=== PATIENT | male | born 1935 | race Caucasian/White ===

== ENCOUNTER → 2018-08-16 | Outpatient (CLI) | payer MEDICARE ==
--- NOTE | 2018-08-16 10:36 | CT ---
EXAMINATION TYPE: CT abdomen pelvis wo con DATE OF EXAM: 08/16/2018 HISTORY: Abdomen pain per order. Epigastric pain and nausea per patient. CT DLP: 870 mGycm. Automated Exposure Control for Dose Reduction was Utilized. TECHNIQUE: CT scan of the abdomen and pelvis is performed without oral or IV contrast. COMPARISON: Esophagram from 2015. FINDINGS: Within the limitations of a non-contrast study, the following observations are made. LUNG BASES: There is right coronary artery stent and/or calcification, correlate clinically. LIVER/GB: Cholecystectomy clips are seen. There is 1.5 cm simple appearing cyst right hepatic lobe ax ial image 23. PANCREAS: Moderate generalized fat replaced atrophy of pancreas is seen. SPLEEN: There is 8 mm splenule inferior splenic hilum axial image 27. ADRENALS: Low dense thickening to left adrenal gland favors benign hyperplasia. KIDNEYS: Cortical thinning in both kidneys with several rounded low dense lesions favoring simple poonam earing cysts but there is more hyperdense 3.1 cm partially exophytic lesion mid pole level posteriorl y axial image 37, Hounsfield units average 15, I suspect proteinaceous cyst. Consider ultrasound foll ow-up. There is mild perinephric fat stranding bilaterally, nonspecific finding. There is slightly mo re prominent fluid or horizontal fat stranding coronal image 76 along the posterior margin mid pole l evel left kidney which could reflect old scar or hematoma given linear distribution with subtle areas of hyperdensity noted. BOWEL: Surgical clips just below diaphragm likely from Vinicius fundoplication surgery are present. The re is recurrent small hiatal hernia felt present. Evaluation bowel slightly suboptimal secondary to l ack of enteric contrast. No suspicious small or large bowel dilatation is present. There is 3.9 cm di verticulum along medial aspect second portion of duodenum coronal image 44. Normal-appearing appendix is seen from base of cecum extending inferiorly in the right lower quadrant. Cecum is slightly wande ring into the right upper to mid abdomen. Some diverticula in the sigmoid colon are present. No CT ev idence for acute diverticulitis. GENITAL ORGANS: Prostate gland is slightly enlarged in size consistent with BPH. Left-sided pelvic ph lebolith. LYMPH NODES: No greater than 1cm abdominal or pelvic lymph nodes are appreciated. OSSEOUS STRUCTURES: Spine is straightened with moderate to severe multilevel anterior and lateral spu rring. Posterior interpedicular rods and screws transfix L3-L5 levels. There is moderate to severe di sc space narrowing and spurring at the lumbosacral junction. There is sclerosis and narrowing of bila teral sacroiliac joints. There is mild to moderate narrowing and spurring in both hip joints. OTHER: Moderate to severe calcified plaque of aorta extends into branch vessels. IMPRESSION: Recurrent small hiatal hernia despite Vinicius fundoplication surgery may be accounting for patient's symptoms. Possible nonsimple cyst right kidney, consider ultrasound follow-up.
== END | disposition home or self-care (01) ==
LOC: RADCTMAIN 07:52
PROVIDERS: ATTEND Family Medicine
DX: K44.9 Diaphragmatic hernia without obstruction or gangrene (principal)
CPT/HCPCS: 74176

== ENCOUNTER → 2018-09-26 | Day surgery (SDC) | payer MEDICARE ==
[2018-09-20 16:20] VITALS: BMI 25.0
[~2018-09-26] MED LIST: LACTATED RINGERS 1,000 ML IV SCH; LIDOCAINE 1% 20 ML VIAL (10MG/ML) FOR IV START INTRADERMA PRN; PROPOFOL 10 MG/ML 20 ML VIAL IV ONE
[2018-09-26 08:35] LABS: Glucose,Whole Blood 180 mg/dL (75-99)
[2018-09-26 08:38] VITALS: TEMP 97.6
[2018-09-26 09:24] VITALS: RESP 16
--- NOTE | 2018-09-26 09:24 | P.PCN ---
Date of Procedure: 09/26/18 Description of Procedure: BRIEF HISTORY: Patient is a 83-year-old, pleasant, male patient who was seen in the office for complaints of epigastric pain and pain with swallowing. He reports sensation of pain in the epigastric region after eating. He has a hiatal hernia is status post Annie fundoplication. He has difficult time breathing and dizzy. He was recently seen by pulmonology and was told that his lung function was adequate, spirometry was normal with no desaturations. He takes omeprazole which she states is not helpful.. PROCEDURE PERFORMED: Esophagogastroduodenoscopy with biopsy. PREOPERATIVE DIAGNOSIS: Gastric abdominal pain, esophageal dysphagia. ESTIMATED BLOOD LOSS: Minimal. IV sedation per anesthesia. PROCEDURE: After informed consent was obtained, the patient was brought into the endoscopy unit. IV sedation was administered by Anesthesia under continuous monitoring. Initially the Olympus GIF-190 video endoscope was inserted into the mouth. Esophagus intubated without any difficulty. It was gradually advanced into the stomach and duodenum and carefully examined. The bulb and the second part of the duodenum appeared normal were significant for mild scattered erythema suggestive of mild duodenitis with biopsies taken. The scope at this time was withdrawn to the stomach, adequately insufflated with air, and upon careful examination, mucosa of the antrum, body, cardia and the fundus were significant for nodularity, erythema and superficial erosions in the antrum and body suggestive of moderate gastritis with biopsies taken. The scope was then withdrawn into the esophagus. 3 cm hiatal hernia. The GE junction was located at 38 cm from the incisors. The esophagus appeared normal, with mid esophageal biopsies to rule out EOE. There were no erosions or ulcerations seen and the patient tolerated the procedure well. IMPRESSION: 1. Moderate gastritis, antrum body and biopsied. 2. Mild duodenitis, biopsied. 3. 3 cm hiatal hernia. 4. Mid esophageal biopsies. RECOMMENDATIONS: The findings of this examination were discussed with the patient and his . Okay to resume omeprazole therapy. May benefit from up titration of medication given findings on EGD, with discussion with the patient about the addition of Zantac at night or alternate PPI such as Protonix twice daily. GERD lifestyle modifications discussed. Await pathology from biopsies.
[2018-09-26 10:12] VITALS: BP 179/82; PULSE 59
== END ==
LOC: ORWHC2ENDO 08:06
PROVIDERS: ATTEND Internal Medicine
DX: K29.50 Unspecified chronic gastritis without bleeding (principal); K29.80 Duodenitis without bleeding; K22.8 Other specified diseases of esophagus; K21.9 Gastro-esophageal reflux disease without esophagitis; R13.14 Dysphagia, pharyngoesophageal phase; I25.10 Atherosclerotic heart disease of native coronary artery without angina pectoris; I10 Essential (primary) hypertension; E78.5 Hyperlipidemia, unspecified; E07.9 Disorder of thyroid, unspecified; Z90.49 Acquired absence of other specified parts of digestive tract; Z95.5 Presence of coronary angioplasty implant and graft; Z79.82 Long term (current) use of aspirin; Z79.84 Long term (current) use of oral hypoglycemic drugs; Z79.890 Hormone replacement therapy; Z79.899 Other long term (current) drug therapy
CPT/HCPCS: 88305; 43239; J2704

== ENCOUNTER → 2019-04-25 | Outpatient (CLI) | payer MEDICARE ==
--- NOTE | 2019-04-25 13:39 | MR ---
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 FINDINGS: Abnormal intrasubstance signal within the intracapsular portion of the long head biceps tendon. Mild tenosynovial fluid along the extracapsular portion. Heterogeneous signal of the subscapularis tendon with areas of partial tearing. The majority of the t endon remains intact. Small intrasubstance tears involving both supraspinatus and infraspinatus tendons. No high-grade part ial or full-thickness tear of either tendon. Mild fatty infiltration of the supraspinatus and infraspinatus muscles. There is extensive degenerative change of the joint with complete loss of articular cartilage, bulky marginal spurring, and innumerable loose bodies. There is approximately 25 degrees retroversion due t o the glenoid bone loss and bony remodeling. Some edematous change within the teres minor. Mild to moderate degenerative change at the AC joint. No Hill-Sachs deformity or os acromiale. IMPRESSION: 1. Rotator cuff tendinosis with small areas of intrasubstance tears involving the supraspinatus and i nfraspinatus tendons. No high-grade partial or full-thickness tear. Mild fatty infiltration of the mu scle bellies. 2. Partial tearing of the subscapularis tendon. The majority of the tendon remains intact. 3. Some edematous change within the teres minor which can be seen with quadrilateral space syndrome. 4. 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 5. Long head biceps tenosynovitis and interstitial tear of the intracapsular portion.
== END | disposition home or self-care (01) ==
LOC: RADMRIMAIN 11:40
PROVIDERS: ATTEND Family Medicine
DX: M75.102 Unspecified rotator cuff tear or rupture of left shoulder, not specified as traumatic (principal); S46.812A Strain of other muscles, fascia and tendons at shoulder and upper arm level, left arm, initial encounter; M19.012 Primary osteoarthritis, left shoulder; D48.0 Neoplasm of uncertain behavior of bone and articular cartilage; M65.812 Other synovitis and tenosynovitis, left shoulder; S43.492A Other sprain of left shoulder joint, initial encounter

== ENCOUNTER → 2021-02-28 | Outpatient (CLI) | payer MEDICARE ==
--- NOTE | 2021-02-28 16:26 | CT ---
EXAMINATION TYPE: CT abdomen pelvis wo con DATE OF EXAM: 02/28/2021 COMPARISON: 08/16/2018 HISTORY: lower abd pain while urinating CT DLP: 552.5 mGycm Examination of the solid and hollow viscera is limited given the lack of contrast. FINDINGS: LUNG BASES: No evidence for nodule. No evidence for infiltrate. Hiatal hernia noted. LIVER/GB: The gallbladder surgically absent. No space-occupying hepatic lesion. PANCREAS: No pancreatic mass identified. No inflammatory process seen. SPLEEN: No evidence for splenomegaly. No intrasplenic lesions seen. ADRENALS: No adrenal nodules identified. No evidence for thickening. KIDNEYS: Parapelvic cyst left kidney. Exophytic cyst right kidney. No nephrolithiasis. No hydronephro sis. BOWEL: Appendix has a normal appearance. No evidence of bowel obstruction. No inflammatory process. Lymph nodes: No evidence for adenopathy greater than 1 cm. Abdominal aorta: Atheromatous changes seen. No evidence for aneurysm. Genital organs: No significant abnormality. Other: Degenerative changes lumbar spine. IMPRESSION: 1. No acute process identified to account for the patient's symptoms. 2. Bilateral renal cysts.
== END | disposition home or self-care (01) ==
LOC: RADCTMAIN 15:57
PROVIDERS: ATTEND Family Medicine
DX: R10.30 Lower abdominal pain, unspecified (principal); N28.1 Cyst of kidney, acquired
CPT/HCPCS: 74176

== ENCOUNTER 2021-07-25 10:49 | Emergency (ER) | payer MEDICARE ==
[2021-07-25] MEDS ORDERED: SODIUM CHLORIDE 0.9% 500 ML 500 ML IV STA (11:30)
[2021-07-25] MEDS ORDERED: ONDANSETRON 4 MG/2 ML VIAL IVP STA (11:30)
[2021-07-25] MEDS ORDERED: PANTOPRAZOLE 40 MG/10 ML VIAL IVP STA (11:35)
--- NOTE | 2021-07-25 11:44 | ED ---
General Adult HPI - General Chief complaint: Abdominal Pain Stated complaint: Chest Pain/GINA Time Seen by Provider: 07/25/21 11:25 Source: patient, family, RN notes reviewed, old records reviewed Mode of arrival: ambulatory Limitations: no limitations - History of Present Illness Initial comments: This is a 86-year-old male, alert and oriented 4, presents to the emergency room with family member complaining of epigastric pain, dizziness and left lower abdominal pain since Wednesday. Patient denies any nausea vomiting or diarrhea. Denies any fevers. He states the symptoms started Wednesday after eating a hamburger with his niece. He has a sensation of fullness after he eats describes it as a pressure in his epigastrium. He states he does have a hiatal hernia and these are similar symptoms. Patient has a history of coronary artery disease, diabetes, hypertension, surgical history of cholecystectomy, left inguinal hernia repair. -: days(s) (3) Location: abdomen Radiation: non-radiation Severity scale (1-10): 9 Quality: other (pressure epigastric) Associated Symptoms: chest pain, other (dizziness) - Related Data Home Medications Medication Instructions Recorded Confirmed Aspirin EC [Ecotrin Low Dose] 81 mg PO DAILY 07/25/21 07/25/21 Canagliflozin [Invokana] 100 mg PO DAILY 07/25/21 07/25/21 Previous Rx's Medication Instructions Recorded Pantoprazole Sodium [Protonix] 40 mg PO DAILY 30 Days #30 tab 07/25/21 Allergies Allergy/AdvReac Type Severity Reaction Status Date / Time No Known Allergies Allergy Verified 07/25/21 12:46 Review of Systems ROS Statement: Those systems with pertinent positive or pertinent negative responses have been documented in the HPI. ROS Other: All systems not noted in ROS Statement are negative. Past Medical History Past Medical History: Coronary Artery Disease (CAD), Diabetes Mellitus, GERD/Reflux, Hyperlipidemia, Hypertension, Thyroid Disorder Additional Past Medical History / Comment(s): DIZZINESS AND SOB AT TIMES. History of Any Multi-Drug Resistant Organisms: None Reported Past Surgical History: Back Surgery, Cholecystectomy, Heart Catheterization With Stent, Hernia Repair Additional Past Surgical History / Comment(s): HIATAL HERNIA REPAIRED; BIOPSY OF KIDNEY Past Anesthesia/Blood Transfusion Reactions: No Reported Reaction Date of Last Stent Placement:: 2008 Past Psychological History: No Psychological Hx Reported Smoking Status: Never smoker Past Alcohol Use History: None Reported Past Drug Use History: None Reported - Past Family History Brother(s) Family Medical History: Cancer General Exam Limitations: no limitations General appearance: alert, in no apparent distress Head exam: Present: atraumatic Eye exam: Present: normal appearance. Absent: scleral icterus, conjunctival injection ENT exam: Present: mucous membranes moist Neck exam: Present: normal inspection, full ROM. Absent: tenderness, meningismus, lymphadenopathy Respiratory exam: Present: normal lung sounds bilaterally. Absent: respiratory distress, accessory muscle use Cardiovascular Exam: Present: regular rate, normal rhythm GI/Abdominal exam: Present: soft, tenderness (Epigastric, left lower quadrant). Absent: guarding, rebound, rigid Extremities exam: Present: full ROM, normal capillary refill. Absent: tenderness, pedal edema Back exam: Absent: tenderness, CVA tenderness (R), CVA tenderness (L), rash noted Neurological exam: Present: alert, oriented X3 Psychiatric exam: Present: normal affect, normal mood Skin exam: Present: warm, dry, intact, normal color. Absent: cyanosis, diaphoretic, petechiae, pallor Course Vital Signs 07/25/21 07/25/21 10:55 14:00 Temperature 98.3 F 98.6 F Pulse Rate 85 63 Respiratory 22 18 Rate Blood Pressure 144/52 160/97 O2 Sat by Pulse 98 98 Oximetry EKG Findings - EKG Results: EKG: sinus rhythm (Ventricular rate of 66, UT interval 0.179, QRS 0.155, QTC 0.437), not changed from: (RBBB noted on old EKG 01-07-14) Medical Decision Making - Medical Decision Making CT abdomen shows diverticulosis without diverticulitis. There are renal and hepatic cysts present seen on previous CT dated 02/28/2021. Patient is feeling better after IV fluids, zofran and Protonix, states he is ready to be discharged home. Epigastric pain is likely related to his hiatal hernia. Vital signs are stable. Abdomen is soft nontender. He will be prescribed Protonix and directed to follow up with his primary care doctor next week. He was also given a referral to GI. Return to the emergency room with any new or concerning symptoms. Patient and are agreeable to this plan of care. - Lab Data Result diagrams: 07/25/21 11:39 07/25/21 11:39 Lab Results 07/25/21 07/25/21 07/25/21 Range/Units 11:39 11:39 11:39 WBC 9.0 (3.8-10.6) k/uL RBC 5.51 (4.30-5.90) m/uL Hgb 16.1 (13.0-17.5) gm/dL Hct 49.6 (39.0-53.0) % MCV 90.0 (80.0-100.0) fL MCH 29.2 (25.0-35.0) pg MCHC 32.5 (31.0-37.0) g/dL RDW 13.8 (11.5-15.5) % Plt Count 196 (150-450) k/uL MPV 8.5 Neutrophils % 77 % Lymphocytes % 14 % Monocytes % 6 % Eosinophils % 1 % Basophils % 1 % Neutrophils # 6.9 (1.3-7.7) k/uL Lymphocytes # 1.3 (1.0-4.8) k/uL Monocytes # 0.6 (0-1.0) k/uL Eosinophils # 0.1 (0-0.7) k/uL Basophils # 0.0 (0-0.2) k/uL PT 10.1 (9.0-12.0) sec INR 0.9 (<1.2) APTT 26.6 (22.0-30.0) sec Sodium 137 (137-145) mmol/L Potassium 4.4 (3.5-5.1) mmol/L Chloride 104 (98-107) mmol/L Carbon Dioxide 24 (22-30) mmol/L Anion Gap 9 mmol/L BUN 21 H (9-20) mg/dL Creatinine 1.07 (0.66-1.25) mg/dL Est GFR (CKD-EPI)AfAm 73 (>60 ml/min/1.73 sqM) Est GFR (CKD-EPI)NonAf 63 (>60 ml/min/1.73 sqM) Glucose 203 H (74-99) mg/dL Plasma Lactic Acid Crow (0.7-2.0) mmol/L Calcium 8.9 (8.4-10.2) mg/dL Total Bilirubin 1.1 (0.2-1.3) mg/dL AST 16 L (17-59) U/L ALT 10 (4-49) U/L Alkaline Phosphatase 64 (38-126) U/L Troponin I (0.000-0.034) ng/mL Total Protein 6.7 (6.3-8.2) g/dL Albumin 4.0 (3.5-5.0) g/dL Amylase 63 (30-110) U/L Lipase 52 (23-300) U/L 07/25/21 07/25/21 Range/Units 11:39 11:39 WBC (3.8-10.6) k/uL RBC (4.30-5.90) m/uL Hgb (13.0-17.5) gm/dL Hct (39.0-53.0) % MCV (80.0-100.0) fL MCH (25.0-35.0) pg MCHC (31.0-37.0) g/dL RDW (11.5-15.5) % Plt Count (150-450) k/uL MPV Neutrophils % % Lymphocytes % % Monocytes % % Eosinophils % % Basophils % % Neutrophils # (1.3-7.7) k/uL Lymphocytes # (1.0-4.8) k/uL Monocytes # (0-1.0) k/uL Eosinophils # (0-0.7) k/uL Basophils # (0-0.2) k/uL PT (9.0-12.0) sec INR (<1.2) APTT (22.0-30.0) sec Sodium (137-145) mmol/L Potassium (3.5-5.1) mmol/L Chloride (98-107) mmol/L Carbon Dioxide (22-30) mmol/L Anion Gap mmol/L BUN (9-20) mg/dL Creatinine (0.66-1.25) mg/dL Est GFR (CKD-EPI)AfAm (>60 ml/min/1.73 sqM) Est GFR (CKD-EPI)NonAf (>60 ml/min/1.73 sqM) Glucose (74-99) mg/dL Plasma Lactic Acid Crow 1.3 (0.7-2.0) mmol/L Calcium (8.4-10.2) mg/dL Total Bilirubin (0.2-1.3) mg/dL AST (17-59) U/L ALT (4-49) U/L Alkaline Phosphatase (38-126) U/L Troponin I <0.012 (0.000-0.034) ng/mL Total Protein (6.3-8.2) g/dL Albumin (3.5-5.0) g/dL Amylase (30-110) U/L Lipase (23-300) U/L Disposition Clinical Impression: Abdominal pain Disposition: HOME SELF-CARE Condition: Good Instructions (If sedation given, give patient instructions): Abdominal Pain (ED) Additional Instructions: Take the Protonix as prescribed and follow-up with the primary care doctor next week. Return to the emergency room for any new or concerning symptoms. Prescriptions: Pantoprazole Sodium [Protonix] 40 mg PO DAILY 30 Days #30 tab Is patient prescribed a controlled substance at d/c from ED?: No Referrals: Juliano Napier MD [Primary Care Provider] - 1-2 days Lacie Estrada MD [STAFF PHYSICIAN] - 1-2 days Time of Disposition: 13:56
--- NOTE | 2021-07-25 12:16 | CT ---
EXAMINATION TYPE: CT abdomen pelvis wo con DATE OF EXAM: 07/25/2021 COMPARISON: 02/28/2021 INDICATION: Hiatal hernia DLP: 677.6 mGycm, Automated exposure control for dose reduction was used. CONTRAST: 0 mL of Isovue 300. Study performed without Oral Contrast TECHNIQUE: Axial images were obtained from above the diaphragm to the pubic rami in the axial plane a t 5 mm thick sections. Reconstructed images are reviewed on the computer in the coronal plane. FINDINGS: Limited CT sections are obtained the lung bases. The lung bases are clear. Coronary artery calcific ations present. Moderate-sized hiatal hernia is present. CT ABDOMEN: Liver: There is a 1.6 cm cyst in the superior right lobe liver. Spleen: Normal Pancreas: Atrophic with fatty infiltration. Adrenal glands: There is minimal diffuse prominence of the left adrenal gland which appears stable fr om comparison Gallbladder: Normal Kidneys: No masses are evident. No hydronephrosis is present. There is a 3.2 cm cyst measuring 26 H ounsfield units posterior medial right mid kidney. Some perinephric stranding may be on the left. Pu nctate hyperdensities in the posterior superior left kidney immediately 0.5 cm. Medullary cyst appear s to be present measuring 3.8 cm 6 Hounsfield units. The findings were present previously. No suspic ious renal stones are evident. Aorta: Vascular calcification is within the aorta. Inferior vena cava: Normal. CT PELVIS: There are diverticuli within the sigmoid colon. No acute diverticulitis is evident. Studies lateral c ontrast limiting bowel evaluation. Appendix: Normal as visualized. Urinary bladder: Normal. Genitourinary structures: Prostate has mild prominence. Osseous structures: No suspicious lytic or sclerotic lesions. Postsurgical changes are within the lum bar spine. Beam hardening artifact is evident. Sacroiliac joint degenerative changes are evident. IMPRESSIONS: 1. Diverticulosis without acute diverticulitis. 2. Renal cysts. Hepatic cyst is present. Findings were present previously.
[2021-07-25 12:55] LABS: INR 0.9 (<1.2); Partial Thromboplastin Time 26.6 sec (22.0-30.0); Prothrombin Time 10.1 sec (9.0-12.0)
[2021-07-25 13:00] LABS: Calcium 8.9 mg/dL (8.4-10.2); Potassium 4.4 mmol/L (3.5-5.1); Total Bilirubin 1.1 mg/dL (0.2-1.3); Total Protein 6.7 g/dL (6.3-8.2)
[2021-07-25 13:08] LABS: Basophils % (A) 1 %; Eosinophils # (A) 0.1 k/uL (0-0.7); Eosinophils % (A) 1 %; HCT 49.6 % (39.0-53.0); HGB 16.1 gm/dL (13.0-17.5); Lymphocytes # (A) 1.3 k/uL (1.0-4.8); Lymphocytes % (A) 14 %; MCH 29.2 pg (25.0-35.0); MCHC 32.5 g/dL (31.0-37.0); Mean Platelet Volume 8.5; Monocytes # (A) 0.6 k/uL (0-1.0); Monocytes % (A) 6 %; Neutrophils # (A) 6.9 k/uL (1.3-7.7); Neutrophils % (A) 77 %; Platelet Count 196 k/uL (150-450); RBC 5.51 m/uL (4.30-5.90); RDW 13.8 % (11.5-15.5)
[2021-07-25 14:10] VITALS: BP 160/97; PULSE 63; RESP 18; TEMP 98.6
== END 2021-07-25 14:00 | disposition home or self-care (01) ==
LOC: EC 10:49
DX: K57.90 Diverticulosis of intestine, part unspecified, without perforation or abscess without bleeding (principal); E11.9 Type 2 diabetes mellitus without complications; I10 Essential (primary) hypertension; I25.10 Atherosclerotic heart disease of native coronary artery without angina pectoris; K21.9 Gastro-esophageal reflux disease without esophagitis; Z79.82 Long term (current) use of aspirin; Z79.84 Long term (current) use of oral hypoglycemic drugs; Z79.899 Other long term (current) drug therapy
CPT/HCPCS: 36415; 93005; 80053; 82150; 83605; 83690; 84484; 85025; 85610; 85730; 74176; 99284; 96374; 96375; 96361 ×2; J2405; C9113

== ENCOUNTER 2022-12-03 14:52 | Emergency (ER) | payer MEDICARE ==
--- NOTE | 2022-12-03 15:00 | ED ---
General Adult HPI - General Source: patient, family, RN notes reviewed Mode of arrival: wheelchair Limitations: no limitations <Navin Baxter - Last Filed: 12/03/22 15:00> <Linus Rodriguez - Last Filed: 12/03/22 18:40> - General Stated complaint: low bp- sent by ALCIDES Whitney Time Seen by Provider: 12/03/22 15:00 - History of Present Illness Initial comments: 87-year-old male presents emergency Department from PCPs office for evaluation of hypotension. Patient was sent over for fluid hydration as they believe he is dehydrated and this is causing his hypotension. He does minute that he feels very weak, dizzy denies any chest pain. (Navin Baxter) 87-year-old male who comes from the primary care office for evaluation of dizziness and hypotension. Patient was hypoxic in triage but I doubt this was accurate as his repeat on room air is in the 90s. He was seen for dizziness and has had an ongoing issue with hypotension and dizziness for many months. He is currently on Midrin. No chest pain. No abdominal pain. He admits that he does not drink enough fluid. (Linus Rodriguez) - Related Data Home Medications Medication Instructions Recorded Confirmed Aspirin EC [Ecotrin Low Dose] 81 mg PO DAILY 07/25/21 12/03/22 Dapagliflozin Propanediol [Farxiga] 10 mg PO DAILY 12/03/22 12/03/22 Midodrine HCl [ProAmatine] 10 mg PO BID 12/03/22 12/03/22 Naproxen Sodium [Aleve] 220 mg PO HS 12/03/22 12/03/22 Omeprazole 20 mg PO DAILY 12/03/22 12/03/22 Sertraline [Zoloft] 25 mg PO HS 12/03/22 12/03/22 Allergies Allergy/AdvReac Type Severity Reaction Status Date / Time No Known Allergies Allergy Verified 12/03/22 16:41 Review of Systems ROS Other: All systems not noted in ROS Statement are negative. <Navin Baxter - Last Filed: 12/03/22 15:00> ROS Other: All systems not noted in ROS Statement are negative. <Linus Rodriguez - Last Filed: 12/03/22 18:40> ROS Statement: Those systems with pertinent positive or pertinent negative responses have been documented in the HPI. Past Medical History Past Medical History: Coronary Artery Disease (CAD), Diabetes Mellitus, GERD/Reflux, Hyperlipidemia, Hypertension, Thyroid Disorder Additional Past Medical History / Comment(s): DIZZINESS AND SOB AT TIMES. History of Any Multi-Drug Resistant Organisms: None Reported Past Surgical History: Back Surgery, Cholecystectomy, Heart Catheterization With Stent, Hernia Repair Additional Past Surgical History / Comment(s): HIATAL HERNIA REPAIRED; BIOPSY OF KIDNEY Past Anesthesia/Blood Transfusion Reactions: No Reported Reaction Date of Last Stent Placement:: 2008 Past Psychological History: No Psychological Hx Reported Smoking Status: Never smoker Past Alcohol Use History: None Reported Past Drug Use History: None Reported - Past Family History Brother(s) Family Medical History: Cancer <Navin Baxter - Last Filed: 12/03/22 15:00> General Exam <Navin Baxter - Last Filed: 12/03/22 15:00> General appearance: alert, in no apparent distress Head exam: Present: atraumatic, normocephalic Eye exam: Present: normal appearance, PERRL ENT exam: Present: mucous membranes dry Neck exam: Present: normal inspection. Absent: tenderness, meningismus Respiratory exam: Present: normal lung sounds bilaterally. Absent: respiratory distress, wheezes Cardiovascular Exam: Present: regular rate, normal rhythm GI/Abdominal exam: Present: soft. Absent: distended, tenderness, guarding Extremities exam: Present: normal inspection, normal capillary refill. Absent: pedal edema Neurological exam: Present: alert, oriented X3, CN II-XII intact. Absent: motor sensory deficit Psychiatric exam: Present: normal affect, normal mood Skin exam: Present: warm, dry, intact <Linus Rodriguez - Last Filed: 12/03/22 18:40> - General Exam Comments Initial Comments: Visual Physical Exam Vital signs reviewed General: Well-appearing, nontoxic, no acute distress. Head: Normocephalic, atraumatic Eyes: PERRLA, EOMI ENT: Airway patent Chest: Nonlabored breathing Skin: No visual rash, normal skin tone Neuro: Alert and oriented 3 Musculoskeletal: No gross abnormalities (Navin Baxter) Course <Linus Rodriguez - Last Filed: 12/03/22 18:40> Vital Signs 12/03/22 12/03/22 12/03/22 15:02 16:53 18:12 Temperature 97.7 F Pulse Rate 80 63 81 Pulse Rate [ 63 K 8 [employer] ] Respiratory 18 18 Rate Blood Pressure 91/54 124/67 118/65 O2 Sat by Pulse 80 L 96 98 Oximetry - Reevaluation(s) Reevaluation #1: 12/03/22 18:37 Patient reevaluated multiple times, resting comfortably, blood pressure improved with IV hydration. I do suspect the degree of dehydration. Patient is very eager for discharge and family is agreeable. He has a medical alert pendent at home. Return parameters discussed. 12/03/22 18:38 (Linus Rodriguez) Medical Decision Making <Navin Baxter - Last Filed: 12/03/22 15:00> - Lab Data Result diagrams: 12/03/22 15:48 12/03/22 15:48 <Linus Rodriguez - Last Filed: 12/03/22 18:40> - Medical Decision Making I performed a quick note portion of this chart signed Navin Baxter PA-C (Navin Baxter) Was pt. sent in by a medical professional or institution ([facility]ZAR[facility] Dickerson, [employer], urgent care, hospital, or [facility]...) When possible be specific @ -No Did you speak to anyone other than the patient for history (EMS, parent, family, police, friend...)? What history was obtained from this source @ -No Did you review nursing and triage notes (agree or disagree)? Why? @ -I reviewed and agree with nursing and triage notes Were old charts reviewed (outside hosp., previous admission, EMS record, old EKG, old radiological studies, urgent care reports/EKG's, [facility] records)? Report findings @ -No old charts were reviewed Differential Diagnosis (chest pain, altered mental status, abdominal pain women, abdominal pain men, vaginal bleeding, weakness, fever, dyspnea, syncope, headac he, dizziness, GI bleed, back pain, seizure, CVA, palpatations, mental health, musculoskeletal)? @ -Differential Weakness: Hypoglycemia, shock, sepsis, hyponatremia, anemia, infection, VA, ETOH, adverse medicine reaction, overdose, stroke, this is not meant to be an all-inclusive list. EKG interpreted by me (3pts min.). @EKG revealed sinus rhythm, right bundle branch block, rate of 81, PA interval 150, QRS duration 137, QTC [address] segment elevation, similar compared to EKG obtained in July 2021 X-rays interpreted by me (1pt min.). @ -Chest x-ray negative for acute cardiopulmonary findings. CT interpreted by me (1pt min.). @ -None done U/S interpreted by me (1pt. min.). @ -None done What testing was considered but not performed or refused? (CT, X-rays, U/S, labs)? Why? @ -None What meds were considered but not given or refused? Why? @ -None Did you discuss the management of the patient with other professionals (lizet lambert i.e. , PA, [employer], lab, RT, psych nurse, aids social worker, body piercer, teacher, account officer, director case management)? Give summary @ -No Was smoking cessation discussed for >3mins.? @ -No Was critical care preformed (if so, how long)? @ -No Were there social determinants of health that impacted care today? How? (Homelessness, low income, unemployed, alcoholism, drug addiction, transportation, low edu. Level, literacy, decrease access to med. care, residential, rehab)? @ -No Was there de-escalation of care discussed even if they declined (Discuss DNR or withdrawal of care, Hospice)? DNR status @ -No What co-morbidities impacted this encounter? (DM, HTN, Smoking, COPD, CAD, Cancer, CVA, ARF, Chemo, Hep., AIDS, mental health diagnosis, sleep apnea, morbid obesity)? @ -[Hypotension, BPH Was patient admitted / discharged? Hospital course, mention meds given and route, prescriptions, significant lab abnormalities, going to OR and other pertinent info. @ -[87-year-old male who presents with hypotension, dizziness. IV established, 1 L normal saline given which does seem to significantly improve his pressure and symptoms. He has normal CBC, normal CMP, he is unable to give a urinalysis and states this is a typical problem for him. He denies any current urinary symptoms. He in the emergency department for prolonged period time and symptoms are improved and he is eager for discharge. Family is agreeable. Return parameters discussed. Undiagnosed new problem with uncertain prognosis? @ -No Drug Therapy requiring intensive monitoring for toxicity (Heparin, Nitro, Insulin, Cardizem)? @ -No Were any procedures done? @ -No Diagnosis/symptom? @ -Dizziness, dehydration Acute, or Chronic, or Acute on Chronic? @ -[Chronic Uncomplicated (without systemic symptoms) or Complicated (systemic symptoms)? @ -default Side effects of treatment? @ -No Exacerbation, Progression, or Severe Exacerbation? @ -No Poses a threat to life or bodily function? How? (Chest pain, USA, VA, pneumonia, PE, COPD, DKA, ARF, appy, cholecystitis, CVA, Diverticulitis, Homicidal, Suicidal, threat to staff... and all critical care pts) @ -[Moderate risk (Linus Rodriguez) - Lab Data Lab Results 12/03/22 12/03/22 12/03/22 Range/Units 15:48 15:48 15:48 WBC 10.5 (3.8-10.6) k/uL RBC 5.21 (4.30-5.90) m/uL Hgb 15.3 (13.0-17.5) gm/dL Hct 46.7 (39.0-53.0) % MCV 89.6 (80.0-100.0) fL MCH 29.4 (25.0-35.0) pg MCHC 32.9 (31.0-37.0) g/dL RDW 13.6 (11.5-15.5) % Plt Count 207 (150-450) k/uL MPV 8.9 Neutrophils % 80 % Lymphocytes % 12 % Monocytes % 5 % Eosinophils % 1 % Basophils % 0 % Neutrophils # 8.3 H (1.3-7.7) k/uL Lymphocytes # 1.3 (1.0-4.8) k/uL Monocytes # 0.6 (0-1.0) k/uL Eosinophils # 0.1 (0-0.7) k/uL Basophils # 0.0 (0-0.2) k/uL Sodium 138 (137-145) mmol/L Potassium 5.0 (3.5-5.1) mmol/L Chloride 104 (98-107) mmol/L Carbon Dioxide 25 (22-30) mmol/L Anion Gap 9 mmol/L BUN 31 H (9-20) mg/dL Creatinine 1.39 H (0.66-1.25) mg/dL Est GFR (CKD-EPI)AfAm 52 (>60 ml/min/1.73 sqM) Est GFR (CKD-EPI)NonAf 45 (>60 ml/min/1.73 sqM) Glucose 161 H (74-99) mg/dL Plasma Lactic Acid Crow 1.4 (0.7-2.0) mmol/L Calcium 9.3 (8.4-10.2) mg/dL Magnesium 2.0 (1.6-2.3) mg/dL Total Bilirubin 0.8 (0.2-1.3) mg/dL AST 22 (17-59) U/L ALT 16 (4-49) U/L Alkaline Phosphatase 68 (38-126) U/L Total Protein 7.1 (6.3-8.2) g/dL Albumin 4.4 (3.5-5.0) g/dL Disposition <Navin Baxter M - Last Filed: 12/03/22 15:00> Is patient prescribed a controlled substance at d/c from ED?: No Time of Disposition: 18:40 <Linus Rodriguez - Last Filed: 12/03/22 18:40> Clinical Impression: Dehydration, Hypotension Disposition: HOME SELF-CARE Condition: Fair Instructions (If sedation given, give patient instructions): Hypotension (ED), Dehydration (ED) Referrals: Eddie Leal MD [Primary Care Provider] - 1-2 days
[2022-12-03 15:55] LABS: Basophils % (A) 0 %; Eosinophils # (A) 0.1 k/uL (0-0.7); Eosinophils % (A) 1 %; HCT 46.7 % (39.0-53.0); HGB 15.3 gm/dL (13.0-17.5); Lymphocytes # (A) 1.3 k/uL (1.0-4.8); Lymphocytes % (A) 12 %; MCH 29.4 pg (25.0-35.0); MCHC 32.9 g/dL (31.0-37.0); MCV 89.6 fL (80.0-100.0); Mean Platelet Volume 8.9; Monocytes # (A) 0.6 k/uL (0-1.0); Monocytes % (A) 5 %; Neutrophils # (A) 8.3 k/uL (1.3-7.7); Neutrophils % (A) 80 %; Platelet Count 207 k/uL (150-450); RBC 5.21 m/uL (4.30-5.90); RDW 13.6 % (11.5-15.5); WBC 10.5 k/uL (3.8-10.6)
[2022-12-03 16:10] VITALS: TEMP 97.7
[2022-12-03 16:16] LABS: ALT 16 U/L (4-49); AST 22 U/L (17-59); African American GFR (CKD) 52 (>60 ml/min/1.73 sqM); Albumin 4.4 g/dL (3.5-5.0); Alkaline Phosphatase 68 U/L (38-126); Anion Gap 9 mmol/L; Blood Urea Nitrogen 31 mg/dL (9-20); Calcium 9.3 mg/dL (8.4-10.2); Carbon Dioxide 25 mmol/L (22-30); Chloride 104 mmol/L (98-107); Glucose 161 mg/dL (74-99); Non-African American GFR(CKD) 45 (>60 ml/min/1.73 sqM); Sodium 138 mmol/L (137-145); Total Bilirubin 0.8 mg/dL (0.2-1.3); Total Protein 7.1 g/dL (6.3-8.2)
[2022-12-03] MEDS ORDERED: SODIUM CHLORIDE 0.9% 1,000 ML IV ONE (16:30)
[2022-12-03 16:57] VITALS: RESP 18
--- NOTE | 2022-12-03 17:32 | XR ---
EXAMINATION TYPE: XR chest 2V DATE OF EXAM: 12/03/2022 5:26 PM CLINICAL INDICATION:Male, 87 years old with history of weakness; [facility] COMPARISON: Chest radiographs from 12/12/2013 TECHNIQUE: XR chest 2V Frontal and lateral views of the chest. FINDINGS: Lungs/Pleura: There is no evidence of pleural effusion, focal consolidation, or pneumothorax. Pulmonary vascularity: Unremarkable. Heart/mediastinum: Cardiomediastinal silhouette is unremarkable. Musculoskeletal: No acute osseous pathology. IMPRESSION: No acute cardiopulmonary disease/process.
[2022-12-03 18:14] VITALS: BP 118/65; PULSE 81
== END 2022-12-03 20:17 | disposition home or self-care (01) ==
LOC: EC 14:52
DX: I95.9 Hypotension, unspecified (principal); E86.0 Dehydration; I45.10 Unspecified right bundle-branch block; I10 Essential (primary) hypertension; E11.9 Type 2 diabetes mellitus without complications; I25.10 Atherosclerotic heart disease of native coronary artery without angina pectoris; K21.9 Gastro-esophageal reflux disease without esophagitis; Z79.82 Long term (current) use of aspirin; Z79.84 Long term (current) use of oral hypoglycemic drugs; Z79.899 Other long term (current) drug therapy
CPT/HCPCS: 36415; 71046; 80053; 83605; 83735; 85025; 93005; 96360; 99285